=== PATIENT | male | born 1965 | race Caucasian/White ===

== ENCOUNTER 2018-05-09 11:45 | Emergency (ER) | payer MEDICAID ==
[~2018-05-09] VITALS: Ht 175.3 cm; Wt 77.1 kg
[2018-05-09] MEDS ORDERED: KEPPRA 500 MG500 MG PO (11:58)
[2018-05-09] MEDS ORDERED: ZOLOFT25 MG PO (11:58)
[2018-05-09] MEDS ORDERED: QUETIAPINE FUM100 MG PO (11:59)
[2018-05-09] MEDS ORDERED: CARBIDOPA-LEVO1 EAC1 PO (11:59)
[2018-05-09] MEDS ORDERED: LORAZEPAM 0.50.5 M1 PO (12:00)
[2018-05-09] MEDS ORDERED: LISINOPRIL10 MG PO (12:01)
[2018-05-09 12:19] LABS: HEMATOCRIT 43.5 % (42.0-52.0); HEMOGLOBIN 14.9 gm/dL (14.0-18.0); MCH 31.6 pg (26.0-34.0); MCHC 34.3 g/dL (28.0-37.0); MCV 92.1 fL (80.0-100.0); MPV 7.8 fl. (7.2-11.1); NUCLEATED RBCS 0 /100WBC; PLATELET COUNT* 395 thou/uL (150-400); RBC 4.72 mil/uL (4.50-6.00); RDW-CV 13.6 % (10.5-14.5); WBC 16.3 thou/uL (4.0-11.0)
[2018-05-09 12:38] LABS: CALCIUM 9.3 mg/dL (8.5-10.1); CREATININE 0.8 mg/dL (0.6-1.3); POTASSIUM 4.2 mmol/L (3.5-5.1)
[2018-05-09 12:40] LABS: ALBUMIN 3.7 g/dL (3.4-5.0); MAGNESIUM 1.9 mg/dL (1.8-2.4); TOTAL BILIRUBIN 0.3 mg/dL (<0.1-1.0); TOTAL PROTEIN 7.7 g/dL (6.4-8.2)
[2018-05-09 12:44] LABS: ALCOHOL < 10 mg/dL (<10); SALICYLATE 3.5 mg/dL (2.8-20.0)
[2018-05-09 12:45] LABS: ACETAMINOPHEN < 2 ug/mL (10-30)
[2018-05-09 12:46] LABS: ABSOLUTE MONOCYTES 0.3 thou/uL (0.0-1.2); PLATELET ESTIMATE ADEQUATE
[2018-05-09 12:47] LABS: ANISOCYTOSIS 1+; POIKILOCYTOSIS 1+
[2018-05-09 13:20] LABS: URINE BILIRUBIN NEGATIVE (Negative); URINE BLOOD NEGATIVE (Negative); URINE CLARITY CLEAR; URINE COLOR YELLOW; URINE GLUCOSE-RANDOM NEGATIVE (Negative); URINE KETONES NEGATIVE (Negative); URINE LEUKOCYTES-REFLEX NEGATIVE (Negative); URINE NITRITE-REFLEX NEGATIVE (Negative); URINE PROTEIN NEGATIVE (Negative); URINE SPECIFIC GRAVITY 1.015 (1.005-1.030); URINE UROBILINOGEN 0.2 E.U./dl (0.2-1.0)
[2018-05-09 13:27] LABS: AMP/METHAMP Negative (Negative); BARBITURATES Negative (Negative); BENZODIAZEPINES POSITIVE (Negative); COCAINE Negative (Negative); METHADONE Negative (Negative); OPIATES POSITIVE (Negative); PCP Negative (Negative); THC Negative (Negative)
[2018-05-09] MEDS ORDERED: ATIVAN1 MG PO (14:12)
[2018-05-09] MEDS ORDERED: ZOFRAN4 MG PO (14:12)
[2018-05-09 14:25] VITALS: BP 130/75
== END 2018-05-09 14:26 | disposition home or self-care (01) ==
LOC: M.ERS 11:45
PROVIDERS: Emergency Medicine
DX: F10.10 Alcohol abuse, uncomplicated (principal); I10 Essential (primary) hypertension; J44.9 Chronic obstructive pulmonary disease, unspecified; F41.9 Anxiety disorder, unspecified; F32.9 Major depressive disorder, single episode, unspecified; Z91.041 Radiographic dye allergy status; Z88.6 Allergy status to analgesic agent; Z88.8 Allergy status to other drugs, medicaments and biological substances

== ENCOUNTER 2018-05-26 18:42 | Emergency (ER) | payer MEDICAID ==
[~2018-05-26] VITALS: Ht 170.2 cm; Wt 72.6 kg
[~2018-05-26 18:42] MED LIST: ATIVAN1 MG PO; CARBIDOPA-LEVO1 EAC1 PO; KEPPRA 500 MG500 MG PO; LISINOPRIL10 MG PO; LORAZEPAM 0.50.5 M1 PO; QUETIAPINE FUM100 MG PO; ZOFRAN4 MG PO; ZOLOFT25 MG PO
[2018-05-26 19:11] LABS: ABSOLUTE BASOPHILS 0.1 thou/uL (0.0-0.2); ABSOLUTE EOSINOPHILS 0.2 thou/uL (0.0-0.7); ABSOLUTE LYMPHOCYTES 4.3 thou/uL (0.8-5.3); ABSOLUTE MONOCYTES 0.6 thou/uL (0.0-1.2); ABSOLUTE NEUTROPHILS 4.8 thou/uL (1.6-8.1); BASOPHILS 0.7 %; EOSINOPHILS 1.6 %; HEMATOCRIT 46.9 % (42.0-52.0); HEMOGLOBIN 15.7 gm/dL (14.0-18.0); LYMPHOCYTES 43.6 %; MCHC 33.4 g/dL (28.0-37.0); MCV 92.7 fL (80.0-100.0); MONOCYTES 5.9 %; NUCLEATED RBCS 0 /100WBC; PLATELET COUNT* 430 thou/uL (150-400); POLYS 48.2 %; RBC 5.06 mil/uL (4.50-6.00); RDW-CV 13.9 % (10.5-14.5); WBC 9.9 thou/uL (4.0-11.0)
[2018-05-26 19:15] LABS: CALCIUM 8.7 mg/dL (8.5-10.1); CREATININE 0.9 mg/dL (0.6-1.3); POTASSIUM 3.9 mmol/L (3.5-5.1)
[2018-05-26 19:20] LABS: TOTAL BILIRUBIN 0.3 mg/dL (<0.1-1.0); TOTAL PROTEIN 7.8 g/dL (6.4-8.2)
[2018-05-26 19:29] LABS: ALCOHOL 347 mg/dL (<10)
[2018-05-26 19:35] LABS: ACETAMINOPHEN < 2 ug/mL (10-30)
[2018-05-26] MEDS ORDERED: REVIA 50 MG TAB50 M1 PO (20:06)
[2018-05-26] MEDS ORDERED: PROTONIX40 M1 PO (20:06)
[2018-05-26] MEDS ORDERED: MINIPRESS2 MG PO (20:07)
[2018-05-26] MEDS ORDERED: TRAZODONE HCL100 MG PO (20:08)
[2018-05-26] MEDS ORDERED: PNV 29-1 TABLE1 EACH PO (20:11)
[2018-05-26 20:38] LABS: URINE BILIRUBIN NEGATIVE (Negative); URINE BLOOD 1+ (Negative); URINE CLARITY CLEAR; URINE COLOR YELLOW; URINE GLUCOSE-RANDOM NEGATIVE (Negative); URINE KETONES NEGATIVE (Negative); URINE LEUKOCYTES-REFLEX NEGATIVE (Negative); URINE NITRITE-REFLEX NEGATIVE (Negative); URINE PROTEIN TRACE (Negative); URINE SPECIFIC GRAVITY 1.025 (1.005-1.030); URINE UROBILINOGEN 0.2 E.U./dl (0.2-1.0)
[2018-05-26 20:45] LABS: AMP/METHAMP Negative (Negative); BARBITURATES Negative (Negative); BENZODIAZEPINES Negative (Negative); COCAINE Negative (Negative); METHADONE Negative (Negative); OPIATES Negative (Negative); PCP Negative (Negative); THC Negative (Negative)
[2018-05-26 20:51] LABS: BACTERIA-REFLEX None Seen /HPF (None Seen); SQUAMOUS 0-3 Few /LPF (0-3); URINE RBC 0-2 Rare /HPF (0-2); URINE WBC-REFLEX None Seen /HPF (0-5)
[2018-05-26 20:52] LABS: CASTS None Seen /LPF (None Seen); CRYSTALS None Seen /LPF (None Seen)
[2018-05-27 03:50] VITALS: BP 110/73
== END 2018-05-27 03:50 | disposition home or self-care (01) ==
LOC: M.ERS 18:42
PROVIDERS: Family Medicine
DX: F10.129 Alcohol abuse with intoxication, unspecified (principal); I10 Essential (primary) hypertension; J44.9 Chronic obstructive pulmonary disease, unspecified; G20 Parkinson's disease; F41.9 Anxiety disorder, unspecified; F32.9 Major depressive disorder, single episode, unspecified; F17.200 Nicotine dependence, unspecified, uncomplicated; Z91.041 Radiographic dye allergy status; Z88.8 Allergy status to other drugs, medicaments and biological substances